=== PATIENT | female | born 1990 | race American Indian/Alaskan Native ===

== ENCOUNTER 2017-01-09 05:45 | Emergency (ER) | payer OTHER ==
[~2017-01-09] VITALS: Ht 175.3 cm; Wt 65.8 kg
--- OUTSIDE RECORDS SUMMARY | ~2017-01-09 | XMS ---
Demographics + + + | Address | [address] | | | [place] [address] | + + + | Preferred Language | Unknown | + + + | Marital Status | Unknown | + + + | Mormon Affiliation | Unknown | + + + | Race | Unknown | + + + | Ethnic Group | Unknown | + + + Author + + + | Author | [facility] | + + + | Organization | [facility] | + + + | Address | [address] | | | [place] [address] | + + + | Phone | | + + + Care Team Providers + + + + | Care Law Tutor Name | Role | Phone | + + + + Unavailable | Unavailable | + + + + PROBLEMS + + + + + + + + | Type | Condition | ICD9-CM | [id number] | Onset | Condition | SNOMED | | | | Code | Code | Dates | Status | Code | + + + + + + + + | Assessment | Left knee | | S83.92XA | Jul, | Active | [id number] | | | sprain | | | 2016 | | [id number] | + + + + + + + + | Assessment | Sprain of | | S93.602A | Jul, | Active | [id number] | | | left foot | | | 2016 | | [id number] | + + + + + + + + ALLERGIES + + + + +--------+ | Substance | Reaction | Event Type | Date | Status | + + + + +--------+ | Amoxicillin | Unknown | Drug Allergy | Jul, | Active | + + + + +--------+ SOCIAL HISTORY No smoking Hx information available PLAN OF CARE + +---------+ | Activity | Details | + +---------+ +---+ | | +---+ + + + | Pending Test | X ray : Knee AP/L (2 views)- LT | + + + | Pending Test | X ray : Foot AP/L/O (3+ views)- LT | + + + | | prn with PCP,Reason: | + + + VITAL SIGNS + + + + | Height | 69 in | 2016-07-28 | + + + + | Weight | 141.8 lbs | 2016-07-28 | + + + + | BMI | 20.94 kg/m2 | 2016-07-28 | + + + + | Temperature | 98.6 degrees Fahrenheit | 2016-07-28 | + + + + | Heart Rate | 119 /min | 2016-07-28 | + + + + | Blood pressure systolic | 130 mm Hg | 2016-07-28 | + + + + | Blood pressure diastolic | 100 mm Hg | 2016-07-28 | + + + + MEDICATIONS + + + + + + + +--------+ | Medicati | Instruct | Dosage | Frequenc | Start | End Date | Duration | Status | | on | ions | | y | Date | | | | + + + + + + + +--------+ | Ibuprofe | Orally | 1 tablet | 8h | 17 Apr, | 27 Apr, | 10 | Active | | n 800 MG | Three | | | 2017 | 2017 | day(s) | | | | times a | | | | | | | | | day | | | | | | | + + + + + + + +--------+ RESULTS No Results PROCEDURES + + + + + | Procedure | Date Ordered | Related Diagnosis | Body Site | + + + + + | Est Level III | July 28, 2016 | | | | Intermediate | | | | + + + + + | [facility] MED/CURRENT | July 28, 2016 | | | | MED MERGE | | | | + + + + + | DOC MEDS VERIFIED | July 28, 2016 | | | | W/PT OR RE | | | | + + + + + IMMUNIZATIONS No Known Immunizations"
--- OUTSIDE RECORDS SUMMARY | ~2017-01-09 | XMS ---
Demographics + + + | Address | [address] | | | [place] [address] | + + + | Preferred Language | Unknown | + + + | Marital Status | Unknown | + + + | Mormonism Affiliation | Unknown | + + + | Race | Unknown | + + + | Ethnic Group | Unknown | + + + Author + + + | Author | [facility] | + + + | Organization | [facility] | + + + | Address | [address] | | | [place] [address] | + + + | Phone | | + + + Care Team Providers + + + + | Care Racking Technician Name | Role | Phone | + + + + Unavailable | Unavailable | + + + + PROBLEMS Unknown Problems ALLERGIES Unknown Allergies SOCIAL HISTORY No smoking Hx information available PLAN OF CARE VITAL SIGNS MEDICATIONS Unknown Medications RESULTS No Results PROCEDURES No Known procedures IMMUNIZATIONS No Known Immunizations"
[~2017-01-09 05:45] MED LIST: ADVIL100 MG PO; BACTRIM DS TAB1 EACH PO; CEPHALEXIN500 MG PO; DOXYCYCLINE MO100 M1 PO; FLEXERIL10 MG PO; FLOVENT HFA12 G1 INH; GABAPENTIN600 MG PO; IBUPROFEN200 M1 PO; IBUPROFEN600 MG PO; MACROBID 100 M100 MG PO; NORCO 5-325 TA1 EACH PO; OXYCODONE HCL15 MG PO; PERCOCET 5-3251 EACH PO; PRENAPLUS TABL1 EACH PO; PROVENTIL HFA6.7 GM INH; PYRIDIUM200 MG PO; TAMSULOSIN HCL0.4 MG PO; TYLENOL EXTRA500 MG PO; TYLENOL WITH C1 EACH PO; TYLENOL325 MG PO; ULTRAM50 MG PO; VICODIN 5-3001 EACH PO; ZOFRAN ODT4 MG SL
[2017-01-09] MEDS ORDERED: ACETAMINOPHEN-1 EAC1 PO (07:02)
== END 2017-01-09 07:15 | disposition home or self-care (01) ==
LOC: ED 05:45
DX: S30.0XXA Contusion of lower back and pelvis, initial encounter (principal); J45.909 Unspecified asthma, uncomplicated; F17.200 Nicotine dependence, unspecified, uncomplicated; Z91.038 Other insect allergy status; Z88.1 Allergy status to other antibiotic agents; Z79.899 Other long term (current) drug therapy; W10.9XXA Fall (on) (from) unspecified stairs and steps, initial encounter
CPT/HCPCS: 73502; 99283

== ENCOUNTER 2017-02-14 18:12 | Emergency (ER) | payer OTHER ==
[~2017-02-14] VITALS: Ht 175.3 cm; Wt 65.8 kg
[~2017-02-14 18:12] MED LIST changes: +ACETAMINOPHEN-1 EAC1 PO
[2017-02-14] MEDS ORDERED: KEFLEX500 MG PO (21:55)
== END 2017-02-14 22:20 | disposition home or self-care (01) ==
LOC: ED 18:12
DX: N39.0 Urinary tract infection, site not specified (principal); F15.10 Other stimulant abuse, uncomplicated; J45.909 Unspecified asthma, uncomplicated; F17.200 Nicotine dependence, unspecified, uncomplicated; Z91.038 Other insect allergy status; Z88.1 Allergy status to other antibiotic agents; Z79.899 Other long term (current) drug therapy
CPT/HCPCS: 74177; 80053; 81001; 83690; 84703; 85025; 87088; 96361; 96374; 96375; 99284; J0696; J1170; J2405; J7030; Q9967